=== PATIENT | female | born 1970 | race Hispanic/Latino ===

== ENCOUNTER 2020-12-01 13:02 | Outpatient (CLI) | payer OTHER | END 2020-12-01 13:03 | disposition home or self-care (01) | LOC: CSHMAMMO 13:02 | PROVIDERS: ATTEND Internal Medicine | DX: Q83.8 Other congenital malformations of breast (principal) | CPT/HCPCS: G0279 ==

== ENCOUNTER 2023-06-01 11:00 | Outpatient (CLI) | payer OTHER | END 2023-06-01 11:01 | disposition home or self-care (01) | LOC: CSHMAMMO 11:00 | PROVIDERS: ATTEND Internal Medicine | DX: Z12.31 Encounter for screening mammogram for malignant neoplasm of breast (principal) | CPT/HCPCS: 77063; 77067 ==